=== PATIENT | male | born 1975 | race Caucasian/White ===

== ENCOUNTER 2019-08-06 13:51 | Emergency (ER) | payer SELFPAY ==
[~2019-08-06] VITALS: Ht 182.9 cm; Wt 125.9 kg
[2019-08-06 14:05] VITALS: Ht 182.9 cm; Wt 125.9 kg
[2019-08-06 15:04] LABS: BASOPHILS 0.3 % (0-2); EOSINOPHILS 2.9 % (0-7); HEMATOCRIT 46.2 % (42.0-54.0); HEMOGLOBIN 15.8 g/dL (13.5-17.5); IMMATURE GRANULOCYTES 0.4 % (0-5); LYMPHOCYTES 31.9 % (15-50); MCH 31.8 pg (26.0-34.0); MCHC 34.2 g/dL (31.0-37.0); MEAN PLATELET VOLUME 10.5 fL (7.4-10.4); MONOCYTES 9.9 % (2-11); NEUTROPHILS 54.6 % (40-80); PLATELET COUNT 193 10x3/uL (130-400); RBC 4.97 10x6/uL (4.20-6.10); RDW 13.6 % (11.5-14.5); WBC 7.3 10x3/uL (4.8-10.8)
[2019-08-06 15:20] LABS: CALC OSMOLALITY 276 mosm/kg (275-300); CALCIUM 8.8 mg/dL (8.5-10.1); CARBON DIOXIDE 28.1 mmol/L (21.0-32.0); CHLORIDE - SERUM 104 mmol/L (98-107); CREATININE - SERUM 0.8 mg/dL (0.6-1.3); GLUCOSE 89 mg/dL (74-106); SODIUM 139 mmol/L (136-145); UREA NITROGEN 13 mg/dL (7-18); eGFR NON AFRICAN AMERICAN > 90 mL/min (90-120)
[2019-08-06 15:34] LABS: ALBUMIN 3.9 g/dL (3.4-5.0); ALKALINE PHOSPHATASE 57 U/L (46-116); ALT (SGPT) 31 U/L (10-68); BILIRUBIN - TOTAL 1.08 mg/dL (0.2-1.3); CREATINE KINASE 147 UL (21-232); PRO BNP 42 pg/mL (0-125); PROTEIN - SERUM 7.2 g/dL (6.4-8.2)
[2019-08-06 15:35] LABS: TROPONIN-I < 0.017 ng/mL (0.000-0.060)
[2019-08-06] MEDS ORDERED: ZPAK PO (17:46)
[2019-08-06] MEDS ORDERED: ALBUTEROL SULF8.5 GM INH (17:46)
[2019-08-06] MEDS ORDERED: SCOT-TUSSI10 MG/5 ML PO (17:46)
[2019-08-06 18:05] VITALS: BP 154/83
== END 2019-08-06 17:51 | disposition home or self-care (01) ==
LOC: D.ER 13:51
PROVIDERS: Family Medicine
DX: J20.9 Acute bronchitis, unspecified (principal)